=== PATIENT | male | born 1960 | race Caucasian/White ===

== ENCOUNTER 2018-07-13 15:28 | Emergency (ER) | payer SELFPAY ==
[2018-07-13] MEDS ORDERED: HYDROmorphone 1 MG/ML Syringe IM ONE (15:51)
--- NOTE | 2018-07-13 15:56 | EDM.PDOC ---
ED HPI GENERAL MEDICAL PROBLEM - General Chief Complaint: Back Pain or Injury Stated Complaint: BACK PAIN Time Seen by Provider: 07/13/18 15:52 Source of Information: Reports: Patient History Limitations: Reports: No Limitations - History of Present Illness INITIAL COMMENTS - FREE TEXT/NARRATIVE: HISTORY AND PHYSICAL: History of present illness: Patient is a 58-year-old male who presents to the emergency room with complaints of low lumbar back pain. He states he was bending over to put the close from the washer into the dryer when he felt his "back give out". He describes the pain as sharp and severe to the mid low back. This does not radiate down the lower extremities. He did not fall or have any traumatic event associated with this. He denies any urinary or fecal incontinence. Denies any numbness or tingling of the lower extremities. He was able to ambulate into the emergency room although hunched over and appears fairly uncomfortable. Patient does report a history of lumbar back pain, this was not precipitated by any trauma or injury. Review of systems: As per history of present illness and below otherwise all systems reviewed and negative. Past medical history: As per history of present illness and as reviewed below otherwise noncontributory. Surgical history: As per history of present illness and as reviewed below otherwise noncontributory. Social history: See social history for further information Family history: As per history of present illness and as reviewed below otherwise noncontributory. Physical exam: General: Well-developed and well-nourished 58-year-old male. Alert and oriented. Nontoxic appearing, moderately uncomfortable while being examined. HEENT: Atraumatic, normocephalic, pupils equal and reactive bilaterally, negative for conjunctival pallor or scleral icterus, mucous membranes moist, TMs normal bilaterally, throat clear, neck supple, nontender, trachea midline. No drooling or trismus noted. No meningeal signs. No hot potato voice noted. Lungs: Clear to auscultation, breath sounds equal bilaterally, chest nontender. Heart: S1S2, regular rate and rhythm without overt murmur Abdomen: Soft, nondistended, nontender. Negative for masses or hepatosplenomegaly. Negative for costovertebral tenderness. Pelvis: Stable nontender. Genitourinary: Deferred. Rectal: Deferred. Skin: Intact, warm, dry. No lesions or rashes noted. Extremities: Atraumatic, moves all extremities per self although straightening the lumbar spine at this time does cause moderate to severe pain negative for cords or calf pain. Neurovascular unremarkable. C-spine/Back: No pinpoint vertebral tenderness upon palpation. He does have severe lower lumbar musculoskeletal discomfort with palpation. Denies any numbness, tingling or satellite paresthesias. Neuro: Awake, alert, oriented. Cranial nerves II through XII unremarkable. Cerebellum unremarkable. Motor and sensory unremarkable throughout. Exam nonfocal. Notes: X-ray shows mild degenerative changes without any acute findings. Patient did improve and his range of motion and rates his pain now had a 3/10. Supportive care measures were reviewed and discussed. Voices understanding and is agreeable to plan of care. Denies any further questions or concerns at this time. Diagnostics: None Therapeutics: Dilaudid IM Prescription: [place] (#15) Impression: Muscular Spasm Lumbar back pain Plan: 1. Avoid sitting or laying flat/being immobile for long periods of time as this can cause increased muscular pain 2. Tylenol and/or ibuprofen as needed for pain management. You may take the prescribed medication as directed. May cause drowsiness a do not take it will driving her needing to be functioning outside of the house. 3. Follow-up with your primary caregiver as we discussed. Return to the ED as needed and as discussed. Definitive disposition and diagnosis as appropriate pending reevaluation and review of above. Back Pain Score (Numeric/FACES): 8 - Related Data Allergies Allergy/AdvReac Type Severity Reaction Status Date / Time No Known Allergies Allergy Verified 11/18/17 12:13 Home Meds: Home Meds FLUoxetine [PROzac] 40 mg PO DAILY 11/18/17 [History] Past Medical History HEENT History: Reports: None Cardiovascular History: Reports: None Respiratory History: Reports: None Gastrointestinal History: Reports: None Genitourinary History: Reports: None Musculoskeletal History: Reports: Back Pain, Chronic Neurological History: Reports: None Psychiatric History: Reports: None Endocrine/Metabolic History: Reports: None Hematologic History: Reports: None Immunologic History: Reports: None Oncologic (Cancer) History: Reports: None Dermatologic History: Reports: None - Infectious Disease History Infectious Disease History: Reports: Chicken Pox, Measles, Mumps - Past Surgical History Head Surgeries/Procedures: Reports: None Social & Family History - Family History Family Medical History: Noncontributory - Tobacco Use Smoking Status *Q: Never Smoker - Caffeine Use Caffeine Use: Reports: Coffee, Soda - Recreational Drug Use Recreational Drug Use: No ED ROS GENERAL - Review of Systems Review Of Systems: ROS reveals no pertinent complaints other than HPI. ED EXAM,LOWER BACK PAIN/INJURY - Physical Exam Exam: See Below (See dictation) Course - Vital Signs Last Recorded V/S: Last Vital Signs Temp 96.8 F 07/13/18 15:33 Pulse 72 07/13/18 15:33 Resp 18 07/13/18 15:33 BP 134/80 07/13/18 15:33 Pulse Ox 97 07/13/18 15:33 - Orders/Labs/Meds Meds: Medications Discontinued Medications Generic Name Dose Route Start Last Admin Trade Name Freq PRN Reason Stop Dose Admin Hydromorphone HCl 1 mg 07/13/18 15:51 07/13/18 15:56 Dilaudid IM 07/13/18 15:52 1 mg ONETIME ONE Administration Departure - Departure Time of Disposition: 16:32 Disposition: Home, Self-Care 01 Clinical Impression: Muscle strain, Lumbar back pain - Discharge Information Referrals: PCP,Unknown [Primary Care Provider] - Forms: ED Department Discharge Additional Instructions: The following information is given to patients seen in the emergency department who are being discharged to home. This information is to outline your options for follow-up care. We provide all patients seen in our emergency department with a follow-up referral. The need for follow-up, as well as the timing and circumstances, are variable depending upon the specifics of your emergency department visit. If you don't have a primary care physician on staff, we will provide you with a referral. We always advise you to contact your personal physician following an emergency department visit to inform them of the circumstance of the visit and for follow-up with them and/or the need for any referrals to a consulting specialist. The emergency department will also refer you to a specialist when appropriate. This referral assures that you have the opportunity for follow-up care with a specialist. All of these measure are taken in an effort to provide you with optimal care, which includes your follow-up. Under all circumstances we always encourage you to contact your private physician who remains a resource for coordinating your care. When calling for follow-up care, please make the office aware that this follow-up is from your recent emergency room visit. If for any reason you are refused follow-up, please contact the [facility] Emergency Department at and asked to speak to the emergency department charge nurse. [facility] [address] [place] [id number] [facility] [address] [place] [id number] 1. Avoid sitting or laying flat/being immobile for long periods of time as this can cause increased muscular pain 2. Tylenol and/or ibuprofen as needed for pain management. You may take the prescribed medication as directed. May cause drowsiness a do not take it will driving her needing to be functioning outside of the house. 3. Follow-up with your primary caregiver as we discussed. Return to the ED as needed and as discussed.
--- NOTE | 2018-07-13 16:34 | CR ---
EXAMINATION: Lumbar spine HISTORY: Pain COMPARISON: 05/14/2014 TECHNIQUE: AP and lateral views FINDINGS: The lumbar spinal alignment is normal. The vertebral body heights appear grossly maintained. No fracture or acute osseous abnormality. The SI joints are symmetric. Marginal osteophytes are noted. IMPRESSION: Mild degenerative changes without acute findings.
[2018-07-13 16:56] VITALS: BP 136/88
== END 2018-07-13 16:50 | disposition home or self-care (01) ==
LOC: MW.ED 15:28
DX: S39.012A Strain of muscle, fascia and tendon of lower back, initial encounter (principal); M62.830 Muscle spasm of back; Z79.899 Other long term (current) drug therapy; X50.9XXA Other and unspecified overexertion or strenuous movements or postures, initial encounter
CPT/HCPCS: 72100; 96372; 99283; J1170